=== PATIENT | male | born 1945 | race Caucasian/White ===

== ENCOUNTER 2022-07-30 08:59 | Outpatient (RCR) | payer MEDICARE, OTHER ==
[~2022-07-30 08:59] MED LIST: METO100T5 PO; OMEP40CA36 PO
== END 2022-08-07 | disposition home or self-care (01) ==
LOC: ONC 08:59
PROVIDERS: ATTEND Radiology Radiation Oncology
DX: C61 Malignant neoplasm of prostate (principal); I48.91 Unspecified atrial fibrillation; Z79.01 Long term (current) use of anticoagulants; Z90.49 Acquired absence of other specified parts of digestive tract
CPT/HCPCS: 99205

== ENCOUNTER 2023-02-05 10:54 | Outpatient (RCR) | payer MEDICARE, OTHER | END 2023-03-07 | disposition home or self-care (01) | LOC: ONC 10:54 | PROVIDERS: ATTEND Radiology Radiation Oncology | DX: C61 Malignant neoplasm of prostate (principal) | CPT/HCPCS: 76873 ==

== ENCOUNTER 2023-04-17 09:52 | Day surgery (SDC) | payer MEDICARE, OTHER ==
[2023-04-17] VITALS (11 sets, daily range): BP systolic 118–145; BP diastolic 57–90
[~2023-04-17] VITALS: Ht 177.8 cm; Wt 114.5 kg
[~2023-04-17 09:52] MED LIST changes: +ATOR20TA66 PO; +INFL100V IV; +LOSA100T58 PO; +PRED5POW11 MC; +TMSL.4C PO; +WARF-48 PO
--- NOTE | 2023-04-17 10:34 | Progress Note-Pre Operative ---
Pre-Operative Progress Note Date of Available H&P: Apr 10, 2023 Date H&P Reviewed: Apr 17, 2023 Time H&P Reviewed: 10:00 History & Physical: H&P Reviewed, Patient Examed, No changes noted Changes from last HP N/A Pre-Operative Diagnosis: Prostate cancer cT1c, PSA 13.9, Yuly 8 (4+4) ERROL YBARRA MD Apr 17, 2023 10:34
[2023-04-17] MEDS ORDERED: CIPR-226 PO (10:36)
[2023-04-17] MEDS ORDERED: ACET-11 PO (10:36)
--- NOTE | 2023-04-17 10:39 | Discharge Inst-Simple/Standard ---
Discharge Inst-Standard Reconcile Patient Problems Problems Reviewed?: Yes Discharge Medications New, Converted or Re-Newed RX: Other (scripts called into [facility] on 04/16/23 per pt request) Patient Instructions/Follow Up Plan of Care/Instructions/FU: 1) One month post implant scan at [facility] cancer center 05/14/23 at 3:00 p.m. 2) One month post-op follow up with Dr Armendariz 05/14/23 at 4:15 p.m. Activity as Tolerated: Yes Discharge Diet: No Restrictions Other Inst to Patient Please instruct patient on leroy catheter care and self removal of catheter on Saturday04/22/23 in the morning. Planned Outpatient Orders/Ref. N/A ERROL YBARRA MD Apr 17, 2023 10:39
[2023-04-17 11:12] LABS: INR 1.1 (0.8-1.4); PROTHROMBIN TIME PATIENT 14.2 SEC (12.2-14.7)
[2023-04-17] MEDS: LACTATED RINGERS 1,000 ML 1,000 ML IV PRN ×2 (12:26→13:56)
[2023-04-17] MEDS ORDERED: ONDANSETRON INJECTION 4 MG/2 ML (SDV) ONE (13:02)
[2023-04-17] MEDS ORDERED: proPOfol INJECTION 200 MG/20 ML VIAL IV ONE (13:02)
[2023-04-17] MEDS ORDERED: LIDOCAINE PF 2% 5 ML VIAL ONE (13:02)
[2023-04-17] MEDS ORDERED: fentaNYL INJECTION 100 MCG/2 ML VIAL ONE (13:02)
[2023-04-17] MEDS ORDERED: SEVOFLURANE (ULTANE) 15 ML INHAL SOLN ONE ×2 (13:18→14:37)
[2023-04-17] MEDS ORDERED: BACITRACIN OINTMENT 28 GM TUBE ONE (13:35)
[2023-04-17] MEDS ORDERED: BACITRACIN OINTMENT 28 GM TUBE TOP ONE (13:38)
--- NOTE | 2023-04-17 14:50 | Anesthesia-General Post-Op ---
General Patient Condition Mental Status/LOC: Same as Preop Cardiovascular: Satisfactory Nausea/Vomiting: Absent Respiratory: Satisfactory Pain: Controlled Complications: Absent Post Op Complications Complications None Follow Up Care/Instructions Patient Instructions None needed. Anesthesia/Patient Condition Patient Condition Patient is awake in PACU and doing well, no complaints, stable vital signs, no apparent adverse anesthesia problems. No complications reported per nursing. MAYANK FREY DO Apr 17, 2023 14:50
[2023-04-17] MEDS ORDERED: morphine INJ 10 MG/ML 1ML (SYR OR VIAL) IVP ONE (15:00)
[2023-04-17] MEDS ORDERED: ONDANSETRON INJECTION 4 MG/2 ML (SDV) IVP PRN (15:00)
--- NOTE | 2023-04-17 15:22 | Diagnostic Imaging Report ---
INDICATION: Prostate cancer, brachytherapy. Fluoroscopy view obtained during radiation seed implants procedure per Dr. Whitfield. Single view obtained, 13.3 seconds of fluoroscopy time was used. 11.17 mGy of exposure Single view demonstrates multiple radiation seed implants overlying the expected location of the prostate gland. IMPRESSION: Intraoperative fluoroscopy used for radiation seed implant in the prostate. Dictated by: Dictated on workstation # [id number]
--- NOTE | 2023-04-17 15:38 | Progress Note-Post Operative ---
Post-Operative Progess Note Surgeon (s)/Coordinator Skill Training Program (s) Surgeon ERROL YBARRA MD Coordinator Skill Training Program: Joycelyn MATIAS MD Pre-Operative Diagnosis Prostate cancer cT1c, PSA 13.9, Yuly 8 (4+4) Post-Operative Diagnosis Same as pre-op Procedure & Operative Findings Date of Procedure 04/17/23 Procedure Performed/Findings (1) 100% Cesium 131 permanent prostate seed implant (2) Injection of biodegradable prostate-rectal spacer utilizing the Barrigel system with ultrasound guidance (3) Cystogram Prostate volume 62.4 cc Anesthesia Type General Estimated Blood Loss Estimated blood loss (mL): Minimal Specimens/Packing Specimens Removed None Packing: None ERROL YBARRA MD Apr 17, 2023 15:38
== END 2023-04-17 17:30 | disposition home or self-care (01) ==
LOC: SDC 09:52
PROVIDERS: ATTEND Radiology Radiation Oncology
DX: C61 Malignant neoplasm of prostate (principal); I48.91 Unspecified atrial fibrillation; K51.90 Ulcerative colitis, unspecified, without complications; Z79.01 Long term (current) use of anticoagulants; E66.9 Obesity, unspecified; Z68.36 Body mass index [BMI] 36.0-36.9, adult; Z87.891 Personal history of nicotine dependence
CPT/HCPCS: 36415; 76000; 76965; 77290; 77318; 77332; 77370; 77470; 77778; 85610; 87081

== ENCOUNTER 2023-04-25 18:14 | Emergency (ER) | payer MEDICARE, OTHER ==
[~2023-04-25] VITALS: Ht 178 cm; Wt 113.0 kg
[~2023-04-25 18:14] MED LIST changes: +ACET-11 PO; +CIPR-226 PO
[2023-04-25] MEDS ORDERED: LIDOCAINE UROJET 2% GEL 10 ML PKG ONE (18:23)
--- NOTE | 2023-04-25 18:27 | ED GU-Male ---
General Chief Complaint: - Reproductive Stated Complaint: UTI Source: patient Exam Limitations: no limitations (VISHNU MÁRQUEZ) History of Present Illness Date Seen by Provider: Apr 25, 2023 Time Seen by Provider: 18:24 Initial Comments Patient is a 77-year-old male with a history of ulcerative colitis, prostate cancer, who presents to ED for decreased urine output, lower abdominal pain. Patient had a Ayala catheter placed over a week ago secondary to having seeds placed in his prostate by Dr. Whitfield on April 17. Patient follows Dr. Alvares and Dr. Whitfield. Patient states he had his catheter removed this Saturday Since then he has had decreased urine output and pain with urination. Has the sensation that he needs to urinate but reports very small amount. Reports some burning with urination yesterday. Was placed on Pyridium. Continued decreased urine output with increasing lower abdominal pain. Denies of any fever vomiting, diarrhea, chest pain or shortness of breath. (VISHNU MÁRQUEZ) Allergies and Home Medications Allergies Coded Allergies: No Known Drug Allergies (Unverified , 10/09/13) Patient Home Medication List Home Medication List Reviewed: Yes (VISHNU MÁRQUEZ) Acetaminophen with Codeine (Acetaminophen-Cod #3 Tablet) 300 Mg-30 Mg Tablet, 1 EACH PO PRN Prescribed by: ERROL WHITFIELD on 04/17/23 103 Atorvastatin Calcium (Atorvastatin Calcium) 20 Mg Tablet, 20 MG PO, (Reported) Entered as Reported by: Emily Evans on 04/02/23 1141 Cephalexin (Cephalexin) 500 Mg Tablet, 500 MG PO BID Prescribed by: SHAUNA POWERS on 04/25/23 193 Ciprofloxacin HCl (Cipro) 250 Mg Tablet, 250 MG PO BID Prescribed by: ERRLO WHITFIELD on 04/17/23 1036 Infliximab (Remicade) 100 Mg Soln, 100 MG IV, (Reported) Entered as Reported by: Emily Evans on 04/02/23 1141 Losartan Potassium (Losartan Potassium) 100 Mg Tablet, 100 MG PO DAILY, (Reported) Entered as Reported by: Emily Evans on 04/02/23 1141 Metoprolol Succinate (Metoprolol Succinate) 100 Mg Tab.sr.24h, 100 MG PO, (Repo rted) Entered as Reported by: LIANE MARTIN on 10/09/132126 Omeprazole (Omeprazole) 40 Mg Capsule.dr, 40 MG PO DAILY, (Reported) Entered as Reported by: LIANE MARTIN on 10/09/132126 Prednisolone, Micronized (Prednisolone) 100 % Powder, 5 GM MC, (Reported) Entered as Reported by: Emily Evans on 04/02/23 114 Tamsulosin HCl (Flomax) 0.4 Mg Cap, 0.4 MG PO, (Reported) Entered as Reported by: Emily Evans on 04/02/23 114 Warfarin Sodium (Warfarin Sodium) 5 Mg Tablet, 5 MG PO, (Reported) Entered as Reported by: Emily Evans on 04/02/23 114 Review of Systems Review of Systems Constitutional: No chills, No diaphoresis, No dizziness, No fever, No malaise EENTM: No hearing loss, No ear pain, No blurred vision Respiratory: No cough, No dyspnea on exertion Cardiovascular: No chest pain Gastrointestinal: abdominal pain; No diarrhea, No nausea, No vomiting Genitourinary: burning; denies discharge; urgency, other (Decreased urine output) Musculoskeletal: No back pain, No joint pain, No joint swelling, No muscle pain Skin: No change in color, No change in hair/nails (VISHNU MÁRQUEZ) All Other Systemes Reviewed Negative Unless Noted: Yes (VISHNU MÁRQUEZ) Past Tqkxnby-Yjrruv-Jjfuyw Hx Seasonal Allergies Seasonal Allergies: No (VISHNU MÁRQUEZ) Past Medical History Surgeries: Yes (BILAT CATARACT) Eye Surgery, Orthopedic Respiratory: No Currently Using CPAP: No Currently Using BIPAP: No Cardiac: Yes Atrial Fibrillation, High Cholesterol, Hypertension Neurological: Yes (migraines) Reproductive Disorders: No Sexually Transmitted Disease: No HIV/AIDS: No Genitourinary: Yes Prostate Problems Gastrointestinal: Yes (benign tumor removal, ulcerative colitis) Colitis Musculoskeletal: Yes Arthritis Endocrine: No HEENT: Yes Cataract Hearing Impairment: Bilateral Hearing Aide Cancer: Yes Prostate Psychosocial: No Integumentary: Yes Psoriasis Blood Disorders: No (VISHNU MÁRQUEZ) Physical Exam Vital Signs Vital Signs - First Documented 04/25/23 18:15 Temp 36.6 Pulse 88 Resp 26 B/P (MAP) 197/101 (133) Pulse Ox 96 O2 Delivery Room Air (BRUEGGEMANN,FANTA T MD) Vital Signs Capillary Refill : (VISHNU MÁRQUEZ) Height, Weight, BMI Height: 5'9" Weight: 230lbs. oz. 104.500020tn; 36.21 BMI Method:Stated General Appearance: WD/WN, no apparent distress HEENT: PERRL/EOMI, normal ENT inspection, TMs normal, pharynx normal Neck: non-tender, full range of motion, supple Cardiovascular: regular rate, rhythm, no edema, no gallop, no JVD Respiratory: chest non-tender, lungs clear, normal breath sounds, no respirator y distress, no accessory muscle use Gastrointestinal: normal bowel sounds, soft, no organomegaly, tenderness (Suprapubic tenderness on palpation. Normal bowel sounds. No rebound or guarding. Mild distention) Back: normal inspection, no CVA tenderness Extremities: normal range of motion, non-tender, normal inspection, no pedal edema Neurologic/Psychiatric: furnace mechanic II-XII nml as tested, no motor/sensory deficits, alert, oriented x 3, abnormal cerebellar tests Skin: normal color, warm/dry (VISHNU MÁRQUEZ) Progress/Results/Core Measures Suspected Sepsis SIRS Temperature: Pulse: Respiratory Rate: Laboratory Tests 04/25/23 18:40: White Blood Count 10.3 Blood Pressure / Mean: Laboratory Tests 04/25/23 18:40: Creatinine 0.87, Platelet Count 276, Total Bilirubin 0.6 (VISHNU MÁRQUEZ) Results/Orders Lab Results Laboratory Tests Test 04/25/23 18:25 04/25/23 18:40 Range/Units Urine Color ORANGE Urine Clarity CLEAR Urine pH 5.0 5-9 Urine Specific [place] <=1.005 1.016-1.022 Urine Protein 1+ H NEGATIVE Urine Glucose (UA) TRACE H NEGATIVE Urine Ketones TRACE H NEGATIVE Urine Nitrite POSITIVE H NEGATIVE Urine Bilirubin 1+ H NEGATIVE Urine Urobilinogen 1.0 < = 1.0 MG/DL Urine Leukocyte Esterase NEGATIVE NEGATIVE Urine RBC (Auto) TRACE H NEGATIVE Urine RBC 0-2 /HPF Urine WBC NONE /HPF Urine Squamous Epithelial Cells NONE /HPF Urine Crystals NONE /LPF Urine Bacteria TRACE /HPF Urine Casts NONE /LPF Urine Mucus NEGATIVE /LPF Urine Culture Indicated YES White Blood Count 10.3 4.3-11.0 10^3/uL Red Blood Count 3.71 L 4.30-5.52 10^6/uL Hemoglobin 11.4 L 13.3-17.7 g/dL Hematocrit 34 L 40-54 % Mean Corpuscular Volume 93 80-99 fL Mean Corpuscular Hemoglobin 31 25-34 pg Mean Corpuscular Hemoglobin Concent 33 32-36 g/dL Red Cell Distribution Width 13.4 10.0-14.5 % Platelet Count 276 130-400 10^3/uL Mean Platelet Volume 9.7 9.0-12.2 fL Immature Granulocyte % (Auto) 1 % Neutrophils (%) (Auto) 61 42-75 % Lymphocytes (%) (Auto) 24 12-44 % Monocytes (%) (Auto) 11 0-12 % Eosinophils (%) (Auto) 3 0-10 % Basophils (%) (Auto) 1 0-10 % Neutrophils # (Auto) 6.3 1.8-7.8 10^3/uL Lymphocytes # (Auto) 2.5 1.0-4.0 10^3/uL Monocytes # (Auto) 1.1 H 0.0-1.0 10^3/uL Eosinophils # (Auto) 0.3 0.0-0.3 10^3/uL Basophils # (Auto) 0.1 0.0-0.1 10^3/uL Immature Granulocyte # (Auto) 0.1 0.0-0.1 10^3/uL Sodium Level 131 L 135-145 MMOL/L Potassium Level 3.3 L 3.6-5.0 MMOL/L Chloride Level 102 98-107 MMOL/L Carbon Dioxide Level 17 L 21-32 MMOL/L Anion Gap 12 5-14 MMOL/L Blood Urea Nitrogen 12 7-18 MG/DL Creatinine 0.87 0.60-1.30 MG/DL Estimat Glomerular Filtration Rate 90 BUN/Creatinine Ratio 14 Glucose Level 106 H 70-105 MG/DL Calcium Level 9.4 8.5-10.1 MG/DL Corrected Calcium 9.7 8.5-10.1 MG/DL Total Bilirubin 0.6 0.1-1.0 MG/DL Aspartate Amino Transf (AST/SGOT) 22 5-34 U/L Alanine Aminotransferase (ALT/SGPT) 17 0-55 U/L Alkaline Phosphatase 63 40-136 U/L Total Protein 7.2 6.4-8.2 GM/DL Albumin 3.6 3.2-4.5 GM/DL (FANTA FISHMAN MD) My Orders Orders - FANTA FISHMAN MD Ua Culture If Indicated (04/25/23 18:22) Lidocaine 2% (Urojet) (Lidocaine 2% (Uro (04/25/23 18:23) Urine Culture (04/25/23 18:25) (FANTA FISHMAN MD) Medications Given in ED Current Medications Medications Dose Ordered Sig/Lise Route Start Time Stop Time Status Last Admin Dose Admin Cephalexin HCl 500 mg ONCE ONCE PO 04/25/23 19:45 04/25/23 19:38 DC 04/25/23 19:37 500 MG Lidocaine HCl 10 ml ONCE ONCE TOP 04/25/23 18:30 04/25/23 18:31 DC 04/25/23 18:24 10 ML (FANTA FISHMAN MD) Vital Signs/I&O 04/25/23 04/25/23 18:15 19:37 Temp 36.6 Pulse 88 76 Resp 26 18 B/P (MAP) 197/101 (133) 132/87 Pulse Ox 96 97 O2 Delivery Room Air Room Air 04/26/23 00:00 Output Total 1800 ml Balance -1800 ml (FANTA FISHMAN MD) Vital Signs/I&O Capillary Refill : (VISHNU MÁRQUEZ) Departure Communication (PCP) Patient with a recent diagnosed prostate cancer follows Dr. Alvares urology at [facility] who presents to the ED for urinary tension, burning with urination. Had a catheter removed Saturday. Had seeds placed in his prostate last Saturday by Dr. Whitfield. Patient is afebrile. He is hypertensive. Feels like he is retaining some mild fluid. Lower abdominal discomfort. Currently on Pyridium. Initial bladder scan showed over 700 ml of urine. CBC, CMP, Ayala catheter was placed here in the ED. CBC showed normal white blood count. Chemistry showed sodium 131, potassium 3.3 with normal kidney function. Urinalysis positive for nitrites without significant leukocytes or white blood cells. Culture is pending. Successful placement of a Ayala catheter. Clamped the catheter initia lly after 1100 ml. Total removal 1800. Patient was discussed with Dr. PenaOksftlrkld-bnxb-yee urine trial in 1 week. They will be in contact with patient for follow-up. No further work-up at this time was recommended. Likely has outlet obstruction secondary to enlarged prostate. Potentially secondary to the seeds but not as common. After reviewing patient's history patient does take warfarin. I did hold Cipro secondary to the potential change of his INR. We will start with Keflex. Patient's pain significantly improved. He has no current complaint. Improvement of his blood pressure. If any worsening symptoms such as fever chills, decreased urine output to return back to ED. (VISHNU MÁRQUEZ) Impression Primary Impression: Urinary tract infection Additional Impression: Urinary retention Disposition: 01 HOME, SELF-CARE Condition: Stable Departure-Patient Inst. Decision time for Depature: 19:30 (VISHNU MÁRQUEZ) Referrals: KENNY FRANICSCO MD (PCP) Primary Care Physician Patient Instructions: Urinary Retention (DC) Scripts Cephalexin (Cephalexin) 500 Mg Tablet 500 MG PO BID for 7 Days, #14 TAB Prov: VISHNU MÁRQUEZ 04/25/23 ATTENDING PHYSICIAN NOTE: I was physically present as attending physician in the emergency department during the care of this patient, but I was not directly involved in the decision making or delivery of care for this patient. (FANTA FISHMAN MD) VISHNU MÁRQUEZ Apr 25, 2023 18:27 FANTA FISHMAN MD Apr 26, 2023 04:35
[2023-04-25] MEDS ORDERED: LIDOCAINE UROJET 2% GEL 10 ML PKG TOP ONE (18:30)
[2023-04-25] MEDS ORDERED: HYDROcodone/ACETAMINOPHEN 10/325 TABLET PO STA (18:32)
[2023-04-25 18:46] LABS: BASOPHILS # (AUTO) 0.1 10^3/uL (0.0-0.1); BASOPHILS % (AUTO) 1 % (0-10); EOSINOPHILS # (AUTO) 0.3 10^3/uL (0.0-0.3); EOSINOPHILS % (AUTO) 3 % (0-10); HEMATOCRIT 34 % (40-54); HEMOGLOBIN 11.4 g/dL (13.3-17.7); LYMPHOCYTES # (AUTO) 2.5 10^3/uL (1.0-4.0); LYMPHOCYTES % (AUTO) 24 % (12-44); MEAN CORPUSCULAR HEMOGLOBIN 31 pg (25-34); MEAN CORPUSCULAR HGB CONC 33 g/dL (32-36); MEAN CORPUSCULAR VOLUME 93 fL (80-99); MEAN PLATELET VOLUME 9.7 fL (9.0-12.2); MONOCYTES # (AUTO) 1.1 10^3/uL (0.0-1.0); MONOCYTES % (AUTO) 11 % (0-12); NEUTROPHILS # (AUTO) 6.3 10^3/uL (1.8-7.8); NEUTROPHILS % (AUTO) 61 % (42-75); PLATELET COUNT 276 10^3/uL (130-400); WHITE BLOOD COUNT 10.3 10^3/uL (4.3-11.0)
[2023-04-25 18:47] LABS: CLARITY,URINE CLEAR; COLOR,URINE ORANGE; GLUCOSE, URINE (UA) TRACE (NEGATIVE); KETONES,URINE TRACE (NEGATIVE); PROTEIN,URINE 1+ (NEGATIVE)
[2023-04-25 18:48] LABS: BACTERIA,URINE TRACE /HPF; BILIRUBIN,URINE 1+ (NEGATIVE); LEUKOCYTE ESTERASE ,URINE NEGATIVE (NEGATIVE); NITRITE,URINE POSITIVE (NEGATIVE); RBC,URINE 0-2 /HPF
[2023-04-25 18:58] LABS: ALBUMIN 3.6 GM/DL (3.2-4.5); POTASSIUM 3.3 MMOL/L (3.6-5.0)
[2023-04-25 18:59] LABS: CALCIUM 9.4 MG/DL (8.5-10.1)
[2023-04-25 19:01] LABS: TOTAL PROTEIN 7.2 GM/DL (6.4-8.2)
[2023-04-25 19:03] LABS: BILIRUBIN,TOTAL 0.6 MG/DL (0.1-1.0)
[2023-04-25 19:04] LABS: CREATININE SERUM 0.87 MG/DL (0.60-1.30)
[2023-04-25] MEDS ORDERED: CEPH500T PO (19:34)
[2023-04-25 19:37] VITALS: BP 132/87
[2023-04-25] MEDS ORDERED: CEPHALEXIN 250 MG CAPSULE PO ONE (19:45)
== END 2023-04-25 19:37 | disposition home or self-care (01) ==
LOC: EDUNIT# 18:14 → ER 18:15
DX: N39.0 Urinary tract infection, site not specified (principal); R33.8 Other retention of urine; C61 Malignant neoplasm of prostate; Z79.899 Other long term (current) drug therapy
CPT/HCPCS: 36415; 51702; 80053; 81000; 85025; 87088

== ENCOUNTER 2023-05-14 14:48 | Outpatient (RCR) | payer MEDICARE, OTHER ==
[~2023-05-14 14:48] MED LIST changes: +CEPH500T PO
[2023-05-15] MEDS ORDERED: ACHD5005 PO (17:11)
== END 2023-06-06 | disposition home or self-care (01) ==
LOC: ONC 14:48
PROVIDERS: ATTEND Radiology Radiation Oncology
DX: C61 Malignant neoplasm of prostate (principal)
CPT/HCPCS: 77290

== ENCOUNTER 2023-05-15 16:03 | Emergency (ER) | payer MEDICARE, OTHER ==
[2023-05-15 16:14] VITALS: BP 166/86
--- NOTE | 2023-05-15 16:21 | ED GU-Male ---
General Chief Complaint: - Reproductive Stated Complaint: KIDNEY/BLADDER PAIN Source: patient, family Exam Limitations: no limitations History of Present Illness Date Seen by Provider: May 15, 2023 Time Seen by Provider: 16:05 Initial Comments 77-year-old male with recent prostate surgery coming in due to urinary retention. He had radiation pellets placed in his prostate about a month ago. He had a Ayala placed at that time. His family has been trying to get it out to see if he can urinate. His took it out earlier today. He has been unable to urinate since then. He is having some suprapubic discomfort now. Denies any fever, flank pain, vomiting. Allergies and Home Medications Allergies Coded Allergies: No Known Drug Allergies (Unverified , 10/09/13) Patient Home Medication List Home Medication List Reviewed: Yes Acetaminophen with Codeine (Acetaminophen-Cod #3 Tablet) 300 Mg-30 Mg Tablet, 1 EACH PO PRN Prescribed by: ERROL YBARRA on 04/17/23 103 Atorvastatin Calcium (Atorvastatin Calcium) 20 Mg Tablet, 20 MG PO, (Reported) Entered as Reported by: Emily Evans on 04/02/231140 Cephalexin (Cephalexin) 500 Mg Tablet, 500 MG PO BID Prescribed by: SHAUNA POWERS on 04/25/231933 Ciprofloxacin HCl (Cipro) 250 Mg Tablet, 250 MG PO BID Prescribed by: ERROL YBARRA on 04/17/23 103 Infliximab (Remicade) 100 Mg Soln, 100 MG IV, (Reported) Entered as Reported by: Emily Evans on 04/02/23 114 Losartan Potassium (Losartan Potassium) 100 Mg Tablet, 100 MG PO DAILY, (Reported) Entered as Reported by: Emily Evans on 04/02/23 114 Metoprolol Succinate (Metoprolol Succinate) 100 Mg Tab.sr.24h, 100 MG PO, (Reported) Entered as Reported by: LIANE MARTIN on 10/09/132126 Omeprazole (Omeprazole) 40 Mg Capsule.dr, 40 MG PO DAILY, (Reported) Entered as Reported by: LIANE MARTIN on 10/09/132126 Prednisolone, Micronized (Prednisolone) 100 % Powder, 5 GM MC, (Reported) Entered as Reported by: Emily Evans on 04/02/231140 Tamsulosin HCl (Flomax) 0.4 Mg Cap, 0.4 MG PO, (Reported) Entered as Reported by: Emily Evans on 04/02/23 1141 Warfarin Sodium (Warfarin Sodium) 5 Mg Tablet, 5 MG PO, (Reported) Entered as Reported by: Emily Evans on 04/02/23 1141 Review of Systems Review of Systems Constitutional: No fever EENTM: no symptoms reported Respiratory: no symptoms reported Cardiovascular: no symptoms reported Gastrointestinal: no symptoms reported Genitourinary: see HPI Musculoskeletal: no symptoms reported Skin: no symptoms reported Psychiatric/Neurological: No Symptoms Reported Endocrine: No Symptoms Reported Past Irpfplh-Mrllmq-Dbodoz Hx Seasonal Allergies Seasonal Allergies: No Past Medical History Surgery/Hospitalization HX: PROSTATE CA, HTN, A FIB, ARTHRITIS, CATARACTS Surgeries: Yes (BILAT CATARACT) Eye Surgery, Orthopedic Respiratory: No Currently Using CPAP: No Currently Using BIPAP: No Cardiac: Yes Atrial Fibrillation, High Cholesterol, Hypertension Neurological: Yes (migraines) Reproductive Disorders: No Sexually Transmitted Disease: No HIV/AIDS: No Genitourinary: Yes Prostate Problems Gastrointestinal: Yes (benign tumor removal, ulcerative colitis) Colitis Musculoskeletal: Yes Arthritis Endocrine: No HEENT: Yes Cataract Hearing Impairment: Bilateral Hearing Aide Cancer: Yes Prostate Psychosocial: No Integumentary: Yes Psoriasis Blood Disorders: No Physical Exam Vital Signs Vital Signs - First Documented 05/15/23 16:14 Temp 37.2 Pulse 76 Resp 26 B/P (MAP) 166/86 (112) Pulse Ox 94 O2 Delivery Room Air Capillary Refill : Height, Weight, BMI Height: 5'9" Weight: 230lbs. oz. 104.021311on; 35.00 BMI Method:Stated General Appearance: WD/WN, no apparent distress HEENT: PERRL/EOMI, normal ENT inspection, pharynx normal Neck: non-tender, full range of motion, supple, normal inspection Gastrointestinal: normal bowel sounds, soft, tenderness (suprapubic) Back: normal inspection, no CVA tenderness Extremities: normal range of motion, non-tender, normal inspection Neurologic/Psychiatric: no motor/sensory deficits, alert, normal mood/affect Skin: normal color, warm/dry Progress/Results/Core Measures Suspected Sepsis SIRS Temperature: Pulse: Respiratory Rate: Blood Pressure / Mean: Results/Orders Lab Results Laboratory Tests Test 05/15/23 16:25 Range/Units Urine Color YELLOC Urine Clarity CLEAR Urine pH 5.0 5-9 Urine Specific [place] <=1.005 1.016-1.022 Urine Protein TRACE H NEGATIVE Urine Glucose (UA) NEGATIVE NEGATIVE Urine Ketones NEGATIVE NEGATIVE Urine Nitrite NEGATIVE NEGATIVE Urine Bilirubin NEGATIVE NEGATIVE Urine Urobilinogen 0.2 < = 1.0 MG/DL Urine Leukocyte Esterase TRACE H NEGATIVE Urine RBC (Auto) 2+ H NEGATIVE Urine RBC 5-10 H /HPF Urine WBC 5-10 H /HPF Urine Squamous Epithelial Cells RARE /HPF Urine Crystals NONE /LPF Urine Bacteria TRACE /HPF Urine Casts NONE /LPF Urine Mucus NEGATIVE /LPF Urine Culture Indicated YES My Orders Orders - VISHNU STONE MD Catheter(Urinary) Insert & Ass 03,15 (05/15/23 16:21) Ua Culture If Indicated (05/15/23 16:21) Urine Culture (05/15/23 16:25) Vital Signs/I&O 05/15/23 16:14 Temp 37.2 Pulse 76 Resp 26 B/P (MAP) 166/86 (112) Pulse Ox 94 O2 Delivery Room Air Capillary Refill : Progress Note : Progress Note 77-year-old male presenting for urinary retention after he had his Ayala removed earlier today. ABCs were intact and vitals were stable on presentation. He is mildly hypertensive which fits him having urinary retention. He tried to urinate and only got some dribbles out per the patient. We did a bladder scan which showed greater than 500 cc in the bladder. A Ayala was then placed. Urinalysis was sent and does have a few white blood cells, but overall does not look concerning for infection. We will follow-up the urine culture. He recently was on antibiotics as well. Patient feeling a lot better after the Ayala catheter was placed. It has not been out for long enough that I would be concerned for an obstructive CHRISTIAN. I believe he is stable for follow-up with the outpatient urologist. He was sent home with strict return precautions. Departure Impression Primary Impression: Urinary retention Disposition: 01 HOME, SELF-CARE Condition: Stable Departure-Patient Inst. Decision time for Depature: 17:00 Referrals: KENNY FRANCISCO MD (PCP/Family) Primary Care Physician Patient Instructions: How to Care for Your Ayala Catheter, Male Add. Discharge Instructions: Please follow back up with the urologist to discuss when and how to get the Ayala catheter out. Scripts Hydrocodone/Acetaminophen (Hydrocodone-Acetamin 5-325 mg) 5 Mg-325 Mg Tablet 1 TAB PO Q6H PRN for PAIN-MODERATE (5-7) for 3 Days, #12 TAB Prov: VISHNU STONE MD 05/15/23 VISHNU STONE MD May 15, 2023 16:21
[2023-05-15 16:47] LABS: CLARITY,URINE CLEAR
[2023-05-15 16:48] LABS: BACTERIA,URINE TRACE /HPF; BILIRUBIN,URINE NEGATIVE (NEGATIVE); GLUCOSE, URINE (UA) NEGATIVE (NEGATIVE); KETONES,URINE NEGATIVE (NEGATIVE); LEUKOCYTE ESTERASE ,URINE TRACE (NEGATIVE); NITRITE,URINE NEGATIVE (NEGATIVE); PROTEIN,URINE TRACE (NEGATIVE); SQUAMOUS EPITHELIAL CELL,UR RARE /HPF
[2023-05-15] MEDS ORDERED: ACHD5005 PO (17:11)
== END 2023-05-15 17:13 | disposition home or self-care (01) ==
LOC: EDUNIT# 16:03 → ER 16:04
DX: R33.9 Retention of urine, unspecified (principal); R10.30 Lower abdominal pain, unspecified
CPT/HCPCS: 81000; 87088; 99282

== ENCOUNTER 2023-06-17 22:35 | Emergency (ER) | payer MEDICARE, OTHER ==
[~2023-06-17] VITALS: Ht 178 cm; Wt 107.0 kg
[~2023-06-17 22:35] MED LIST changes: +ACHD5005 PO
[2023-06-17] MEDS ORDERED: LIDOCAINE UROJET 2% GEL 10 ML PKG ONE (22:42)
[2023-06-17] MEDS ORDERED: LIDOCAINE UROJET 2% GEL 10 ML PKG TOP ONE (22:45)
--- NOTE | 2023-06-17 22:45 | ED General ---
General Chief Complaint: - Reproductive Stated Complaint: UNABLE TO HAVE BOWEL MOVEMENT Source of Information: Patient Exam Limitations: No Limitations History of Present Illness Date Seen by Provider: Jun 17, 2023 Time Seen by Provider: 22:38 Initial Comments Patient is a 78-year-old male who presents to the emergency department today with a chief complaint of inability to urinate. He has a history of prostate cancer, had radiation "seeds" placed approximately 2 months ago. He has had intermittent issues with urinary retention since that time. His , at the direction of his urologist pulled his Ayala this morning. He only "dribbled" all day long. Finally had so much discomfort that the patient and his contacted their daughter who is an RN in this emergency department and she advised them to come to the emergency room. Over the course of the last several days he has had increasing bouts of bloody diarrhea, bloody/mucousy stool. He has a history of ulcerative colitis. He has Remicade injections every 6 weeks or so. His last injection was the end of May. His marine rigger is . He has been straining to void and having multiple bouts of bloody stool over the last several days. He is complaining of hemorrhoidal pain. He states he has used quite a bit of Preparation H. No reported fevers. He has not had any nausea or vomiting. He has had very good oral intake, eating without nausea. Has a history of A-fib and is currently anticoagulated on Coumadin. Primary care physician is Dr. Purcell. His Urologist is Dr Matias. He actually has an appointment with his urologist later today at 3 PM. He has only been taking Tylenol for pain. Timing/Duration: 12 Hours Severity: Severe Associated Systoms: Other (diarrhea - bloody/mucousy stool) Allergies and Home Medications Allergies Coded Allergies: No Known Drug Allergies (Unverified , 10/09/13) Patient Home Medication List Home Medication List Reviewed: Yes Acetaminophen with Codeine (Acetaminophen-Cod #3 Tablet) 300 Mg-30 Mg Tablet, 1 EACH PO PRN Prescribed by: ERROL YBARRA on 04/17/23 1036 Atorvastatin Calcium (Atorvastatin Calcium) 20 Mg Tablet, 20 MG PO, (Reported) Entered as Reported by: Emily Evans on 04/02/23 1141 Cephalexin (Cephalexin) 500 Mg Tablet, 500 MG PO BID Prescribed by: SHAUNA POWERS on 04/25/23 193 Ciprofloxacin HCl (Cipro) 250 Mg Tablet, 250 MG PO BID Prescribed by: ERROL YBARRA on 04/17/23 1036 Hydrocodone/Acetaminophen (Hydrocodone-Acetamin 5-325 mg) 5 Mg-325 Mg Tablet, 1 TAB PO Q6H PRN for PAIN-MODERATE (5-7) Prescribed by: VISHNU STONE on 05/15/23 171 Infliximab (Remicade) 100 Mg Soln, 100 MG IV, (Reported) Entered as Reported by: Emily Evans on 04/02/23 114 Losartan Potassium (Losartan Potassium) 100 Mg Tablet, 100 MG PO DAILY, (Reported) Entered as Reported by: Emily Evans on 04/02/23 114 Metoprolol Succinate (Metoprolol Succinate) 100 Mg Tab.sr.24h, 100 MG PO, (Reported) Entered as Reported by: LIANE MARTIN on 10/09/132126 Omeprazole (Omeprazole) 40 Mg Capsule.dr, 40 MG PO DAILY, (Reported) Entered as Reported by: LIANE MARTIN on 10/09/132126 Prednisolone, Micronized (Prednisolone) 100 % Powder, 5 GM MC, (Reported) Entered as Reported by: Emily Evans on 04/02/23 114 Tamsulosin HCl (Flomax) 0.4 Mg Cap, 0.4 MG PO, (Reported) Entered as Reported by: Emily Evans on 04/02/23 114 Warfarin Sodium (Warfarin Sodium) 5 Mg Tablet, 5 MG PO, (Reported) Entered as Reported by: Emily Evans on 04/02/23 114 Review of Systems Review of Systems Constitutional: see HPI EENTM: no symptoms reported, double vision Cardiovascular: no symptoms reported Gastrointestinal: abdominal pain, other (bloody stool) Genitourinary: decreased output Musculoskeletal: no symptoms reported Skin: no symptoms reported Psychiatric/Neurological: No Symptoms Reported Past Tybufzh-Pvoqws-Dpombp Hx Seasonal Allergies Seasonal Allergies: No Past Medical History Surgery/Hospitalization HX: [address] MATIAS ON 04/17 Surgeries: Yes (BILAT CATARACT) Eye Surgery, Orthopedic Respiratory: No Currently Using CPAP: No Currently Using BIPAP: No Cardiac: Yes Atrial Fibrillation, High Cholesterol, Hypertension Neurological: Yes (migraines) Reproductive Disorders: No Sexually Transmitted Disease: No HIV/AIDS: No Genitourinary: Yes Prostate Problems Gastrointestinal: Yes (benign tumor removal, ulcerative colitis) Colitis Musculoskeletal: Yes Arthritis Endocrine: No HEENT: Yes Cataract Hearing Impairment: Bilateral Hearing Aide Cancer: Yes Prostate Psychosocial: No Integumentary: Yes Psoriasis Blood Disorders: No Physical Exam Vital Signs Vital Signs - First Documented 06/17/23 22:37 Temp 36.7 Pulse 90 Resp 18 B/P (MAP) 203/100 (134) Pulse Ox 94 O2 Delivery Room Air Capillary Refill : Height, Weight, BMI Height: 5'9" Weight: 230lbs. oz. [id number]; 35.00 BMI Method:Stated General Appearance: No Apparent Distress, WD/WN, Obese Eyes: Bilateral Eye Normal Inspection HEENT: PERRL/EOMI, Moist Mucous Membranes Neck: Normal Inspection Respiratory: Lungs Clear, Normal Breath Sounds, No Accessory Muscle Use, No Respiratory Distress Cardiovascular: Regular Rate, Rhythm, Normal Peripheral Pulses (2+ radial bilaterally) Gastrointestinal: Soft, Abnormal Bowel Sounds (hyperactive), Tenderness (LLQ witout involuntary guarding or rebound) Rectal: Hemorrhoids (inflammed circumferential external hemorrhoids; also soft full hemorrhoids palpated just inside the anal verge; no gross blood on ERIS), Tenderness Extremity: Normal Inspection, Normal Range of Motion Neurologic/Psychiatric: Alert, Oriented x3, No Motor/Sensory Deficits, Normal Mood/Affect Skin: Normal Color, Warm/Dry Focused Exam Lactate Level 06/17/23 23:20: Lactic Acid Level 2.18*H Lactic Acid Level Laboratory Tests Test 06/17/23 23:20 Lactic Acid Level 2.18 MMOL/L (0.50-2.00) *H Progress/Results/Core Measures Suspected Sepsis SIRS Temperature: Pulse: Respiratory Rate: Laboratory Tests 06/17/23 23:20: White Blood Count 7.4 Blood Pressure / Mean: 06/17/23 23:20: Lactic Acid Level 2.18*H Laboratory Tests 06/17/23 23:20: Creatinine 1.01, Platelet Count 215, Total Bilirubin 0.4 Results/Orders Lab Results Laboratory Tests Test 06/17/23 22:48 06/17/23 23:20 Range/Units Urine Color YELLOW Urine Clarity CLEAR Urine pH 6.0 5-9 Urine Specific Jackson 1.010 L 1.016-1.022 Urine Protein NEGATIVE NEGATIVE Urine Glucose (UA) NEGATIVE NEGATIVE Urine Ketones NEGATIVE NEGATIVE Urine Nitrite NEGATIVE NEGATIVE Urine Bilirubin NEGATIVE NEGATIVE Urine Urobilinogen 0.2 < = 1.0 MG/DL Urine Leukocyte Esterase NEGATIVE NEGATIVE Urine RBC (Auto) 2+ H NEGATIVE Urine RBC 10-25 H /HPF Urine WBC 0-2 /HPF Urine Squamous Epithelial Cells NONE /HPF Urine Crystals PRESENT H /LPF Urine Amorphous Sediment FEW BUSTER URATES H /LPF Urine Bacteria TRACE /HPF Urine Casts NONE /LPF Urine Mucus MODERATE H /LPF Urine Culture Indicated NO White Blood Count 7.4 4.3-11.0 10^3/uL Red Blood Count 3.80 L 4.30-5.52 10^6/uL Hemoglobin 11.9 L 13.3-17.7 g/dL Hematocrit 37 L 40-54 % Mean Corpuscular Volume 97 80-99 fL Mean Corpuscular Hemoglobin 31 25-34 pg Mean Corpuscular Hemoglobin Concent 32 32-36 g/dL Red Cell Distribution Width 15.9 H 10.0-14.5 % Platelet Count 215 130-400 10^3/uL Mean Platelet Volume 9.6 9.0-12.2 fL Immature Granulocyte % (Auto) 0 % Neutrophils (%) (Auto) 53 42-75 % Lymphocytes (%) (Auto) 35 12-44 % Monocytes (%) (Auto) 10 0-12 % Eosinophils (%) (Auto) 2 0-10 % Basophils (%) (Auto) 0 0-10 % Neutrophils # (Auto) 3.9 1.8-7.8 10^3/uL Lymphocytes # (Auto) 2.6 1.0-4.0 10^3/uL Monocytes # (Auto) 0.8 0.0-1.0 10^3/uL Eosinophils # (Auto) 0.1 0.0-0.3 10^3/uL Basophils # (Auto) 0.0 0.0-0.1 10^3/uL Immature Granulocyte # (Auto) 0.0 0.0-0.1 10^3/uL Sodium Level 136 135-145 MMOL/L Potassium Level 3.9 3.6-5.0 MMOL/L Chloride Level 105 98-107 MMOL/L Carbon Dioxide Level 20 L 21-32 MMOL/L Anion Gap 11 5-14 MMOL/L Blood Urea Nitrogen 19 H 7-18 MG/DL Creatinine 1.01 0.60-1.30 MG/DL Estimat Glomerular Filtration Rate 77 BUN/Creatinine Ratio 19 Glucose Level 106 H 70-105 MG/DL Lactic Acid Level 2.18 *H 0.50-2.00 MMOL/L Calcium Level 9.0 8.5-10.1 MG/DL Corrected Calcium 9.6 8.5-10.1 MG/DL Total Bilirubin 0.4 0.1-1.0 MG/DL Aspartate Amino Transf (AST/SGOT) 15 5-34 U/L Alanine Aminotransferase (ALT/SGPT) 17 0-55 U/L Alkaline Phosphatase 66 40-136 U/L C-Reactive Protein High Sensitivity 4.26 H 0.00-0.50 MG/DL Total Protein 6.0 L 6.4-8.2 GM/DL Albumin 3.2 3.2-4.5 GM/DL My Orders Orders - EDIS MASON MD Ayala Cath (06/17/23 22:40) Lidocaine 2% (Urojet) (Lidocaine 2% (Uro (06/17/23 22:45) Lidocaine 2% (Urojet) (Lidocaine 2% (Uro (06/17/23 22:42) Bladder Scan (06/17/23 22:46) Ua Culture If Indicated (06/17/23 22:47) Ed Iv/Invasive Line Start (06/17/23 23:17) Cbc And Automated Diff (06/17/23 23:17) Comprehensive Metabolic Panel (06/17/23 23:17) Hs C Reactive Protein (06/17/23 23:17) Blood Culture (06/17/23 23:17) Lactic Acid Analyzer (06/17/23 23:17) Ct Abdomen/Pelvis W (06/17/23 23:44) Ns Iv 1000 Ml (Ns Iv 1000 Ml) (06/17/23 23:45) Iohexol Injection (Omnipaque 350 Mg/Ml 1 (06/18/23 00:00) Received Contrast (Hold Metformin- Contr (06/18/23 00:00) Ns (Ivpb) 100 Ml (Sodium Chloride 0.9% 1 (06/18/23 00:00) Medications Given in ED Current Medications Medications Dose Ordered Sig/Lise Route Start Time Stop Time Status Last Admin Dose Admin Lidocaine HCl 10 ml ONCE ONCE TOP 06/17/23 22:45 06/17/23 22:46 DC 06/17/23 22:50 10 ML Vital Signs/I&O 06/17/23 22:37 Temp 36.7 Pulse 90 Resp 18 B/P (MAP) 203/100 (134) Pulse Ox 94 O2 Delivery Room Air Capillary Refill : Progress Note : Time: 02:14 Progress Note Patient seen and evaluated by me. Evaluation today includes history and physical examination. Patient had CBC, comprehensive metabolic panel, blood culture with lactic acid, CRP, urinalysis and CT scan of the abdomen and pelvis with IV contrast. Pertinent physical exam findings, well-developed well- nourished obese male in no acute distress. Slightly hypertensive on arrival with a diastolic a little over 100. Not tachycardic. He is afebrile, 94% sats on room air. His heart is regular, lungs are clear. Abdomen is soft with hyperactive bowel sounds. He has mild to moderate tenderness in the left lower quadrant without involuntary guarding. Initially his lower abdomen is quite tense and tender consistent with acute urinary retention. Mentating appropriately, no obvious focal neurologic deficits. Differential diagnosis acute urinary retention secondary to urinary tract infection, prostatic hypertrophy, flare of ulcerative colitis, anemia, sepsis, dehydration Labs independently reviewed and interpreted by me. His CBC shows a normal white blood cell count of 7.4 with normal differential. Hemoglobin is 11.9, minimally low, hematocrit 37. Normal platelets at 215. Comprehensive metabolic panel shows normal electrolytes with a slightly low CO2 at 20. His BUN is 19, creatinine 1.01. Glucose of 106. Lactic acid is slightly elevated at 2.18. CRP is elevated at 4.26. Urinalysis after placement of Ayala catheter and bladder decompression shows 2+ red blood cells with 10-25 red blood cells on microscopy. 0-2 white blood cells. Nitrite negative. Trace bacteria. Patient is treated in the emergency department with a liter of normal saline after his CT. He remained afebrile. His blood pressure came down to normal, 150s over 70s. Heart rate down into the 60s after his bladder was decompressed. Monitored throughout on telemetry with no deterioration in his condition. Was noted to have periodic desaturations on pulse oximetry while sleeping. He would drop into the 84 to 88% range. Consideration for sepsis however he is not febrile, not tachycardic, no increased white blood cell count. I believe his mildly elevated lactic is mostly due to dehydration, his repeated episodes of diarrhea. CRP is likely elevated secondary to autoimmune process/ulcerative colitis. I did contact [facility] where his GI specialist is and Dr. Castellanos is not on-call this evening. Dr. Castellanos had started him on some budesonide earlier in the day. I recommended to his that he continue that. He can take a dose of Imodium when he arrives home. I instructed her to call the office this morning for follow-up. He has a follow-up appointment with this afternoon. Likely his ulcerative colitis has flared due to recent instrumentation for his prostate cancer. I am not concerned at this point for urinary tract infection, significant colitis, sepsis. I think he was adequately volume resuscitated with just a liter of fluids as his BUN and creatinine are normal and his specific gravity on his urinalysis is 1.01. No clinical or objective findings to warrant hospitalization at this time. Strict return precautions provided to both verbal and written format to his at the bedside. She verbalizes understanding of the plan of care. All questions are sought and answered. Patient is stable for discharge. Diagnostic Imaging Diagonstic Imaging: CT Comments CT abdomen and pelvis with IV contrast, stat rad interpretation: No definite evidence of acute pathology, moderate-sized hiatal hernia, collapsed urinary bladder. He does have some fatty infiltration of the mucosa of the rectosigmoid colon which may be due to prior repeated bouts of inflammation. Small rounded focus of fat anterior to the sigmoid colon may represent old fat necrosis. No obstruction. Departure Impression Primary Impression: Acute urinary retention Additional Impressions: Chronic ulcerative colitis with rectal bleeding Qualified Codes: K51.911 - Ulcerative colitis, unspecified with rectal bleeding Hemorrhoids Qualified Codes: K64.9 - Unspecified hemorrhoids Disposition: 01 HOME, SELF-CARE Condition: Improved Departure-Patient Inst. Decision time for Depature: 02:12 Referrals: KENNY PURCELL MD (PCP/Family) Primary Care Physician Patient Instructions: Urinary Retention (DC) Add. Discharge Instructions: Continue the steroids as prescribed by Dr. Coleman's office. Please keep your appointment with Dr Matias tomorrow. He can have a dose of 2 Imodium when he gets home or "antidiarrheal tablets". If he develops a fever please return to the emergency department for reevaluation. Continue extra strength Tylenol every 6 hours as needed for pain. Encourage fluids so that he stays well-hydrated. Follow-up with Dr. COLEMAN tomorrow. Return to the emergency department for any new, concerning or emergent complaints. Copy Copies To 1: KENNY PURCELL MD Copies To 2: Joycelyn MATIAS MD, KATHRYN M MD Jun 17, 2023 22:45
[2023-06-17 23:18] LABS: CLARITY,URINE CLEAR; COLOR,URINE YELLOW
[2023-06-17 23:19] LABS: AMORPHOUS SEDIMENT,UR FEW AMOR URATES /LPF; BACTERIA,URINE TRACE /HPF; BILIRUBIN,URINE NEGATIVE (NEGATIVE); GLUCOSE, URINE (UA) NEGATIVE (NEGATIVE); KETONES,URINE NEGATIVE (NEGATIVE); LEUKOCYTE ESTERASE ,URINE NEGATIVE (NEGATIVE); NITRITE,URINE NEGATIVE (NEGATIVE); PROTEIN,URINE NEGATIVE (NEGATIVE); WBC,URINE 0-2 /HPF
[2023-06-17 23:35] LABS: BASOPHILS % (AUTO) 0 % (0-10); EOSINOPHILS # (AUTO) 0.1 10^3/uL (0.0-0.3); EOSINOPHILS % (AUTO) 2 % (0-10); HEMATOCRIT 37 % (40-54); HEMOGLOBIN 11.9 g/dL (13.3-17.7); LYMPHOCYTES # (AUTO) 2.6 10^3/uL (1.0-4.0); LYMPHOCYTES % (AUTO) 35 % (12-44); MEAN CORPUSCULAR HEMOGLOBIN 31 pg (25-34); MEAN CORPUSCULAR HGB CONC 32 g/dL (32-36); MEAN CORPUSCULAR VOLUME 97 fL (80-99); MEAN PLATELET VOLUME 9.6 fL (9.0-12.2); MONOCYTES # (AUTO) 0.8 10^3/uL (0.0-1.0); MONOCYTES % (AUTO) 10 % (0-12); NEUTROPHILS # (AUTO) 3.9 10^3/uL (1.8-7.8); NEUTROPHILS % (AUTO) 53 % (42-75); PLATELET COUNT 215 10^3/uL (130-400); WHITE BLOOD COUNT 7.4 10^3/uL (4.3-11.0)
[2023-06-17] MEDS ORDERED: NS IV 1000 ML 1,000 ML IV SCH (23:45)
[2023-06-17 23:57] LABS: ALBUMIN 3.2 GM/DL (3.2-4.5); BILIRUBIN,TOTAL 0.4 MG/DL (0.1-1.0); CREATININE SERUM 1.01 MG/DL (0.60-1.30); POTASSIUM 3.9 MMOL/L (3.6-5.0)
[2023-06-18] MEDS ORDERED: IOHEXOL 350 MG/ML 100 ML (OMNIPAQUE 350) VIAL IV ONE
[2023-06-18] MEDS ORDERED: NS 100 ML (IVPB) BAG IV ONE
[2023-06-18] MEDS ORDERED: HOLD METFORMIN - RECEIVED CONTRAST 20 ML VIAL IV SCH
[2023-06-18 02:15] VITALS: BP 152/71
--- NOTE | 2023-06-18 07:12 | Diagnostic Imaging Report ---
EXAMINATION: CT abdomen and pelvis with intravenous contrast. TECHNIQUE: Multiple contiguous axial images were obtained through the abdomen and pelvis after the uneventful administration of intravenous contrast. All CT scans use one or more of the following dose optimizing techniques: automated exposure control, MA and/or KvP adjustment based on patient size and exam type or iterative reconstruction. HISTORY: Left lower quadrant abdominal pain. COMPARISON: None available. FINDINGS: The heart is unremarkable. Dependent atelectasis is seen in the lung bases. Both kidneys demonstrate bilateral simple cortical cysts. No hydronephrosis or solid renal mass. The urinary bladder is decompressed by the Ayala in place. The prostate is seen with fiducial markers. Hypoattenuating foci are seen in the left hepatic lobe. No enhancing hepatic lesions. The portal vein is patent. The gallbladder is unremarkable. The spleen, pancreas, and adrenal glands have a normal appearance. There is no pathologically enlarged mesenteric or retroperitoneal adenopathy. Moderate hiatal hernia is seen. The bowel loops are nondilated. The appendix is visualized in the right lower quadrant and has a normal appearance. There is bowel wall thickening and pericolonic inflammatory changes involving the descending and sigmoid colon. There is no free fluid or free air. No acute osseous abnormalities. There is calcified aortic and iliac atherosclerotic plaque without aneurysm. There is no free air, loculated collection, or adenopathy in the pelvis. IMPRESSION: 1. Inflammatory changes and bowel wall thickening involving the descending and sigmoid colon, suggestive of colitis. No bowel obstruction. No free fluid or free air. 2. Decompressed urinary bladder with a Ayala in place. No hydronephrosis. 3. Moderate hiatal hernia. The preliminary report does not mention the inflammatory changes involving the colon. Otherwise, agree with preliminary report. Report given to Dr. Palmer at 7:10 AM 06/18/2023/cb Dictated by: Dictated on workstation # [id number]
== END 2023-06-18 02:20 | disposition home or self-care (01) ==
LOC: EDUNIT# 22:35 → ER 22:37
DX: K51.911 Ulcerative colitis, unspecified with rectal bleeding (principal); R33.9 Retention of urine, unspecified; K64.9 Unspecified hemorrhoids; I48.91 Unspecified atrial fibrillation; E66.9 Obesity, unspecified; Z68.35 Body mass index [BMI] 35.0-35.9, adult; Z79.01 Long term (current) use of anticoagulants
CPT/HCPCS: 36415; 51702; 74177; 80053; 81000; 83605; 85025; 86141; 87040